=== PATIENT | female | born 1990 | race Caucasian/White ===

== ENCOUNTER → 2019-01-08 16:40 | Outpatient (CLI) | payer OTHER, SELFPAY ==
--- NOTE | 2019-01-08 | DI.MRI.S_ITS ---
PROCEDURE: MR ANGIO HEAD WO CON INDICATIONS: Left facial pain. TECHNIQUE: Noncontrast axial 3-D [id number] MR angiogram, with 3-dimensional maximum intensity projection (MIP) reformats of the internal carotid arteries and posterior circulation then performed. COMPARISON: [facility], , MR HEAD/BRAIN WO/W CON, 01/08/2019, 17:20. FINDINGS: Image quality: Excellent. Anterior circulation: Intracranial internal carotid arteries demonstrate normal size and intraluminal flow signal. The flow within the paired anterior cerebral arteries is normal and symmetric. Incidental note is made of an accessory branch of the anterior cerebral artery system, which emanates from the left aspect of the anterior communicating artery. The flow within the middle cerebral arteries is normal and symmetric. The anterior communicating artery is seen. No stenoses, occlusions, or aneurysms. Posterior circulation: Visualized portions of the vertebral arteries demonstrate normal caliber, and join to form a normal appearing basilar artery. The flow within the posterior cerebral arteries is normal and symmetric. No stenoses, occlusions, or aneurysms. IMPRESSION: No significant abnormality on this intracranial MR angiogram. Dictated by: Jordin Littlejohn M.D. on 01/08/2019 at 17:17 Approved by: Jordin Littlejohn M.D. on 01/08/2019 at 17:18
--- NOTE | 2019-01-08 | DI.MRI.S_ITS ---
PROCEDURE: MR HEAD/BRAIN WO/W CON INDICATIONS: Left facial pain TECHNIQUE: Noncontrast sagittal T1 spin echo, axial T2 fast spin echo, axial FLAIR, axial gradient echo, axial diffusion and ADC through the brain. Axial/sagittal/coronal 3-D CISS, thin-slice axial T1 spin echo with fat saturation through the skull base. After the administration of contrast, axial and coronal thin-slice T1 spin echo with fat saturation through the skull base, axial T1 spin echo with fat saturation through the brain. COMPARISON: [facility], MR, MR ANGIO HEAD WO CON, 01/08/2019, 17:08. FINDINGS: Image quality: Excellent. Trigeminal nerves: The trigeminal nerves demonstrate symmetric appearance, without masses or abnormal enhancement seen along their courses. The Meckel's caves are likewise unremarkable. No abnormal enhancement can be seen within the Meckel's caves. CSF spaces: Ventricles are normal in size and shape. No extra-axial fluid collections. Basal cisterns are patent. Brain: No intracranial bleeds or mass effects. No abnormal intracranial enhancement. Diffusion weighted images show no acute ischemic insults. Acosta-white matter interface is intact. Brainstem is normal. Normal intravascular flow voids are present. Skull and face: Calvarial marrow signal is normal. Orbits appear normal. Sinuses: Sinuses and mastoids appear clear. IMPRESSION: Unremarkable MRI, without an imaging explanation for patient's presenting history. No significant abnormality of the left trigeminal nerve can be seen. No masses or abnormal enhancement can be seen. Dictated by: Jordin Littlejohn M.D. on 01/08/2019 at 17:15 Approved by: Jordin Littlejohn M.D. on 01/08/2019 at 17:16
== END ==
PROVIDERS: Visit Provider Psychiatry & Neurology Neurology
DX: G50.0 Trigeminal neuralgia (principal)
CPT/HCPCS: 70544; 70553; A9579